=== PATIENT | female | born 1990 | race Hispanic/Latino ===

== ENCOUNTER 2021-12-03 11:48 | Emergency (ER) | payer SELFPAY ==
[~2021-12-03] VITALS: Ht 152.4 cm; Wt 54.4 kg
== END 2021-12-03 12:45 | disposition home or self-care (01) ==
LOC: FSED 11:52
DX: O20.9 Hemorrhage in early pregnancy, unspecified (principal); R10.30 Lower abdominal pain, unspecified
CPT/HCPCS: 81003; 81025; 99283